=== PATIENT | female | born 2005 | race Caucasian/White ===

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

== ENCOUNTER 2025-01-08 06:08 | Day surgery (SDC) | payer OTHER, SELFPAY ==
[2025-01-08] VITALS (8 sets, daily range): BP systolic 110–123; BP diastolic 60–82; BMI 21.2
[2025-01-08 07:03] LABS: HCG, Urine Qualitative Screen Negative
[2025-01-08] MEDS: NORMOSOL-R/PLASMALYTE-A 1000 IV (07:12)
[2025-01-08] MEDS: DILAUDID 0.25 MG IV ×2 (08:37→09:03)
== END 2025-01-08 10:00 | disposition home or self-care (01) ==
LOC: SDS 06:08
PROVIDERS: ATTENDING PHYSICIAN Otolaryngology
DX: J35.01 Chronic tonsillitis (principal); Z72.0 Tobacco use
CPT/HCPCS: 42821; 81025; 88304

== ENCOUNTER 2025-01-14 10:04 | Emergency (ER) | payer OTHER, SELFPAY ==
[2025-01-14 10:15] VITALS: BP 131/97
[2025-01-14 10:29] VITALS: BMI 20.9
--- NOTE | 2025-01-14 10:48 | ED.GENMED ---
History of Present Illness
General
Chief Complaint: Post Operative Problem(s)
Source: patient and family
Exam Limitations: none
Time Seen by Provider: 01/14/25 10:40
Nursing documentation reviewed up to this point in time: agreed with
History of Present Illness
History of Present Illness:
Patient is a 19-year-old female 6 days postop from tonsillectomy & adenoidectomy presenting to the emergency department with intractable pain and decreased oral intake. She was seen by Dr. Garrett for her postoperative appointment this past
where everything was found to be healing well and her pain was relatively well-controlled. However�she reports that over the past 2 days pain has significantly worsened and she is having extreme difficulty swallowing. She has been unable to
tolerate much p.o. intake both food and water secondary to pain.
She was seen in urgent care today and spoke with her ENT physician who both recommended evaluation in the emergency department with concerns of dehydration.
Patient denies any fever. Abdominal pain or vomiting. No shortness of breath or hemoptysis. She does report very minimal blood-tinged sputum last night however this seems resolved.
She has been taking Vicodin as prescribed by ENT as well as Tylenol and milk with very minimal improvement in pain.
Review of Systems
Review of Systems
Allergies reviewed?: Yes
All Other Systems: ROS reviewed and negative except as documented in HPI and ROS
Phy Exam
Physical Exam
Physical Exam:
Vitals: Patient's vital signs are stable. Afebrile
General: Patient is uncomfortable appearing due to pain.
Skin: Warm and dry, no rashes or lesions
Head: Normocephalic, atraumatic
Eyes: Sclera nonicteric.
Throat: Protecting airway. Bilateral post tonsillectomy surgical site visualized. Mucosa healing appropriately with expected granulation tissue. No active bleeding, clot, purulent exudate. No uvular deviation or significant swelling.
Neck: Normal ROM, no cervical spine tenderness, no meningismus
Cardiac: Regular rate and rhythm, no murmurs.
Pulm: Normal respiratory effort, no wheezes, rales, rhonchi heard on exam
Abdomen: No abdominal tenderness.
Extremities: No evidence of cyanosis or edema
Neuro: AAOx3. Grossly intact
Psychiatric: Normal affect.
Course
Orders/Labs/Results
Orders:
Orders
01/14/25 11:17
0.9% Sodium Chloride 1000 ml [Nss] 1,000 ml IV BOLUS
Dexamethasone Sod Phosphate [Decadron] 10 mg IV NOW STA
Ketorolac [Toradol] 15 mg IV NOW STA
Test Result ONCE
01/14/25 11:26
Basic Metabolic Panel Urgent
Complete Blood Count/With Diff Urgent
HCG, Serum Qualitative Screen Urgent
01/14/25 12:31
Hydrocodone 5/APAP 325 [Temple 5/325] 1 tablet PO NOW STA
Abnormal Lab Results
01/14/25
11:26
RDW 11.2 L %
(11.5-14.5)
Abs Immat Gran (auto) 0.1 H 10^3/uL
(0-0.05)
Absolute Monos (auto) 0.8 H 10^3/uL
(0.1-0.6)
Immature Gran % 0.6 H %
(0-0.5)
Monocytes % 10.2 H %
(1.7-9.3)
BUN 5 L mg/dl
(7-17)
01/14/25 11:26
01/14/25 11:26
Vital Signs
Initial and Last Documented VS:
Initial Vital Signs
Temp Pulse Resp BP Pulse Ox
98.3 F 99 18 131/97 97
01/14/25 10:15 01/14/25 10:15 01/14/25 10:15 01/14/25 10:15 01/14/25 10:15
Last Documented Vital Signs
Temp Pulse Resp BP Pulse Ox
98.3 F 96 17 131/97 97
01/14/25 10:15 01/14/25 13:45 01/14/25 13:45 01/14/25 10:15 01/14/25 13:45
MDM/Problems Addressed
Differential Diagnosis Includes:
Not limited to: postoperative pain, acute dehydration, etc
MDM/Problems Addressed:
19-year-old female currently 6 days postop from tonsillectomy and adenoidectomy presenting with intractable postoperative pain, inability to tolerate PO intake. Surgery uncomplicated. No fevers, vomiting, postoperative bleeding. Vitals as above.
No evidence of postoperative bleeding, abscess, or infection on exam. Did discuss with patient�s ENT, Dr. Garrett. Will check basic labs, give IV fluids, treat pain and give dose of IV steroids.
I did discuss with patient regarding dose of IV Toradol, and risk/benefit, including increased risk of bleeding which patient accepts and understands.
Update: Labs without clinically significant abnormalities. Patient did have good response to Toradol and Decadron. She is able to tolerate oral intake. Will give scheduled dose of Vicodin while IV fluids finish.
Update: Patient appears significantly improved since arrival to ED. Her pain is under much better control. She is able to drink fluids and has had applesauce. She received a liter of IV fluids. At this point � feel stable for discharge home with
continued pain management as directed by ENT. Course of oral steroids were sent by her ENT physician which she can start tomorrow. She will continue to follow up with ENT. Strict return precautions discussed, including any evidence of infection or
postoperative bleeding. Patient and patient�s family comfortable with plan. All questions answered.
Chronic conditions affecting care:
Recently tonsillectomy & adenoidectomy, etc
Acute Exacerbation and/or Progression of Chronic Illness:
Postoperative pain
*Pulse Oximetry
SaO2: 97
Oxygen Mode of Delivery: Room air
Patient hypoxic: no
*EKG
Interpreted by ED Provider?: NA
*Crop Specialist Interpretation
Rate: normal
Interpretation: normal
Heart Rate: 94
Rhythm: sinus
*Critical Care Note
Total Time (30-74mins, 75-104mins- exclusive of procedures): Not Applicable
Data Reviewed
Review of Other/Old Records Reveals: Operative Reports (Operative report from 01/08/2025-tonsillectomy and adenoidectomy with Dr. Garrett - uncomplicated)
Patient Management
Discussion with other providers: Home Health Scheduler (Case discussed with ENT)
ED Attending Note
-
Portions of this chart may have been created with voice recognition software.� Occasional wrong word or��sound alike� substitutions may have occurred due to the inherent limitations of voice recognition software.
Discharge Plan
Departure
Patient Disposition: Home (Routine Discharge)
Date of Disposition: 01/14/25
Time of Disposition: 13:42
Patient with high blood pressure during this ER visit?: Yes
Condition: Good
Discharge Problem:
Post-tonsillectomy pain
Instructions: Postoperative Pain (DC), BLOOD PRESSURE
Prescriptions:
No Action
hydrocodone-acetaminophen 5-325 mg tablet
1 - 2 tab PO Q4HPRN PRN (Reason: pain) Qty: 15 0RF
ondansetron 4 mg tablet,disintegrating
4 mg PO Q8HPRN PRN (Reason: nausea) Qty: 5 1RF
Referrals:
Stephan Garza PA-C [Family Provider, Family Practice]
Andrew Garrett MD [Active, Otology] - Call in 1-3 days for appt
Activity Restrictions/Additional Instructions:
RETURN TO THE EMERGENCY DEPARTMENT WITH ANY FEVER, BLEEDING, INTRACTABLE PAIN, DIFFICULTY BREATHING OR SWALLOWING, SIGNS OF SEVERE DEHYDRATION, OR ANY OTHER CONCERNS
- You were given IV fluids, IV steroids, IV Toradol, and your scheduled Vicodin while in the emergency department.
- Please continue to take your pain medications as recommended by ENT including alternating doses of Vicodin, Tylenol, and Motrin a prescription for prednisone was sent to your pharmacy by your ENT doctor which you should start tomorrow.
- It is important to stay well-hydrated.
- Follow-up with ENT for further evaluation/management to ensure that your symptoms improved
Monitor your symptoms closely and return to the emergency department with any acute worsening/new symptoms or any bleeding
Interventions
Interventions:
*Risk Screen - Suicide Last Done: 01/14/25 10:15
*General Assessment Last Done: 01/14/25 10:15
*Neglect/Abuse Screening Last Done: 01/14/25 10:15
*ED- Fall Risk Assessment Last Done: 01/14/25 10:29
*ED COVID-19 Vaccine History Last Done: 01/14/25 10:29
*Nursing Disposition Last Done: 01/14/25 13:54
ED-Skin Assessment Last Done: 01/14/25 10:29
Discharge Date and Time
Discharge Date/Time: 01/14/25 13:56
Print Language: POLISH
[2025-01-14] MEDS: NSS 1000 IV (11:39)
[2025-01-14] MEDS: DECADRON 10 MG IV (11:40)
[2025-01-14] MEDS: TORADOL 15 MG IV (11:41)
[2025-01-14 11:53] LABS: Hematocrit 43.3 % (37.0-47.0); Hemoglobin 15.7 g/dL (12.0-16.0); Mean Corp Hgb Conc. 36.3 g/dL (33.0-37.0); Mean Corpuscular Volume 83.6 fL (81.0-99.0); Nucleated Red Blood Cells % 0 %; Platelet Count 321 10^3/uL (130-400); Red Cell Dist. Width 11.2 % (11.5-14.5)
[2025-01-14 12:33] LABS: HCG, Serum Qualitative Screen Negative
[2025-01-14 12:34] LABS: Blood Urea Nitrogen 5 mg/dl (7-17); Calcium 9.4 mg/dl (8.4-10.2); Carbon Dioxide 25 mmol/L (22-30); Chloride 102 mmol/L (98-107); Estimated Creatinine Clearance 114 ml/min; Glucose 77 mg/dl (70-99); Potassium 4.0 mmol/L (3.5-5.1); Sodium 137 mmol/L (135-145); eGFR > 60.00
[2025-01-14] MEDS: NORCO 5/325 1 TABLET PO (12:35)
== END 2025-01-14 13:56 | disposition home or self-care (01) ==
LOC: EMR 10:04
PROVIDERS: Physician Assistant; EMERGENCY PHYSICIAN Emergency Medicine; FAMILY PHYSICIAN Physician Assistant Medical
DX: R13.10 Dysphagia, unspecified (principal); R07.0 Pain in throat; G89.18 Other acute postprocedural pain; R03.0 Elevated blood-pressure reading, without diagnosis of hypertension; F41.9 Anxiety disorder, unspecified; F32.A Depression, unspecified; F43.10 Post-traumatic stress disorder, unspecified; F17.290 Nicotine dependence, other tobacco product, uncomplicated
CPT/HCPCS: 99284; 96374; 96375; 96361; 80048; 84703; 85025